=== PATIENT | female | born 1955 | race Caucasian/White ===

== ENCOUNTER 2025-04-09 06:11 | Day surgery (SDC) | payer OTHER, SELFPAY ==
[2025-04-09 07:52] LABS: Glucose - Point of Care 152 mg/dl (70-99)
== END 2025-04-09 09:31 | disposition home or self-care (01) ==
LOC: GI 06:11
PROVIDERS: ATTENDING PHYSICIAN Internal Medicine Gastroenterology; FAMILY PHYSICIAN Family Medicine
DX: Z12.11 Encounter for screening for malignant neoplasm of colon (principal); K57.30 Diverticulosis of large intestine without perforation or abscess without bleeding; K64.8 Other hemorrhoids; R12 Heartburn; K44.9 Diaphragmatic hernia without obstruction or gangrene; K21.00 Gastro-esophageal reflux disease with esophagitis, without bleeding; D12.8 Benign neoplasm of rectum; K31.89 Other diseases of stomach and duodenum; Z86.0100 Personal history of colon polyps, unspecified
CPT/HCPCS: 45385; 43239; 82962; 88305; 88342